=== PATIENT | female | born 1960 | race Caucasian/White ===

== ENCOUNTER 2017-12-06 11:51 | Emergency (ER) | payer SELFPAY ==
[~2017-12-06] VITALS: Ht 165.1 cm; Wt 74.0 kg
[2017-12-06 13:54] LABS: CLARITY URINE CLEAR (CLEAR); COLOR URINE YELLOW (YELLOW); KETONES URINE NEGATIVE (NEGATIVE); LEUKOCYTE ESTERASE URINE NEGATIVE (NEGATIVE); NITRITE URINE POSITIVE (NEGATIVE); OCCULT BLOOD URINE NEGATIVE (NEGATIVE); PROTEIN URINE NEGATIVE (NEGATIVE); SPECIFIC GRAVITY URINE 1.029 (1.005-1.030); UROBILINOGEN URINE 0.2 E.U./dL (0.2-1.0)
[2017-12-06] MEDS ORDERED: KETOROLAC 60MG/2ML VIAL IM ONE (14:00)
[2017-12-06] MEDS ORDERED: SODIUM CHLORIDE 0.9% 500 ML IV ONE (14:15)
[2017-12-06] MEDS ORDERED: CEFTRIAXONE 1 G PREMIX 50 ML IV ONE (14:15)
[2017-12-06 16:20] VITALS: BP 111/72
== END 2017-12-06 16:20 | disposition home or self-care (01) ==
LOC: ER 13:33
DX: M54.40 Lumbago with sciatica, unspecified side (principal); N39.0 Urinary tract infection, site not specified; E11.9 Type 2 diabetes mellitus without complications; Z98.890 Other specified postprocedural states
CPT/HCPCS: 81003; 87077; 87086; 87186; 96365; 96372; 99284; J0696; J1885; J7040; Z7610

== ENCOUNTER 2019-06-12 11:04 | Emergency (ER) | payer MEDICAID ==
[~2019-06-12] VITALS: Ht 165.1 cm; Wt 72.0 kg
[2019-06-12] MEDS ORDERED: INSU100V3 SUBCUT (11:49)
[2019-06-12] MEDS ORDERED: SODIUM CHLORIDE 0.9% 1,000 ML IV ONE (16:11)
[2019-06-12] MEDS ORDERED: KETOROLAC 30MG/ML VIAL IV STA (16:11)
[2019-06-12] MEDS ORDERED: ONDANSETRON HCL 4MG/2ML INJ IV STA (16:11)
[2019-06-12 16:25] LABS: CLARITY URINE CLEAR (CLEAR); COLOR URINE YELLOW (YELLOW); KETONES URINE TRACE (NEGATIVE); LEUKOCYTE ESTERASE URINE NEGATIVE (NEGATIVE); NITRITE URINE POSITIVE (NEGATIVE); OCCULT BLOOD URINE 1+ (NEGATIVE); PH URINE 5.5 (4.5-8.0); PROTEIN URINE 3+ (NEGATIVE); UROBILINOGEN URINE 0.2 E.U./dL (0.2-1.0)
[2019-06-12] MEDS ORDERED: CEFTRIAXONE 1 G PREMIX 50 ML IV ONE (17:15)
[2019-06-12 18:01] LABS: BASOPHILS % 0.6 % (0.0-2.0); CHLORIDE 104 mEq/L (98-107); EOSINOPHILS % 2.9 % (0.0-5.0); HEMATOCRIT. 34.3 % (36.0-48.0); HEMOGLOBIN. 11.9 g/dL (12.0-16.0); LYMPHOCYTES % 33.4 % (20.0-50.0); MEAN CORPUSCULAR HEMOGLOBIN 30.4 pg (28.0-32.0); MEAN CORPUSCULAR VOLUME 87.7 fL (81.0-99.0); MEAN PLATELET VOLUME 8.5 fl (7.4-10.4); MONOCYTES % 5.5 % (2.0-8.0); NEUTROPHILS % 57.6 % (40.0-76.0); PLATELET 323 x1000/uL (130-400); RED BLOOD CELL COUNT 3.92 mill/uL (4.2-5.4); RED CELL DISTRIBUTION WIDTH 12.5 % (11.6-14.6)
[2019-06-12 19:43] VITALS: BP 155/99
== END 2019-06-12 19:51 | disposition home or self-care (01) ==
LOC: ER 14:28
DX: N30.00 Acute cystitis without hematuria (principal); E11.9 Type 2 diabetes mellitus without complications; Z98.890 Other specified postprocedural states; Z79.4 Long term (current) use of insulin
CPT/HCPCS: 36415; 74176; 80053; 81003; 83690; 85025; 96361; 96365; 96375; 99284; J0696; J1885; J2405; J7030; Z7610

== ENCOUNTER 2019-11-27 17:08 | Emergency (ER) | payer MEDICAID ==
[~2019-11-27] VITALS: Ht 165.1 cm; Wt 77.0 kg
[~2019-11-27 17:08] MED LIST: INSU100V3 SUBCUT
[2019-11-27] MEDS ORDERED: IBUPROFEN 600MG TABLET PO STA (18:32)
[2019-11-27 18:40] LABS: CLARITY URINE CLEAR (CLEAR); COLOR URINE YELLOW (YELLOW); KETONES URINE NEGATIVE (NEGATIVE); LEUKOCYTE ESTERASE URINE NEGATIVE (NEGATIVE); NITRITE URINE NEGATIVE (NEGATIVE); OCCULT BLOOD URINE TRACE (NEGATIVE); PH URINE 6.5 (4.5-8.0); PROTEIN URINE 2+ (NEGATIVE); SPECIFIC GRAVITY URINE 1.012 (1.005-1.030); UROBILINOGEN URINE 0.2 E.U./dL (0.2-1.0)
[2019-11-27 19:41] LABS: BASOPHILS % 0.4 % (0.0-2.0); EOSINOPHILS % 2.1 % (0.0-5.0); HEMATOCRIT. 32.2 % (36.0-48.0); HEMOGLOBIN. 10.9 g/dL (12.0-16.0); MEAN CORPUSCULAR HEMOGLOBIN 30.3 pg (28.0-32.0); MEAN CORPUSCULAR VOLUME 89.3 fL (81.0-99.0); MEAN PLATELET VOLUME 8.1 fl (7.4-10.4); MONOCYTES % 7.1 % (2.0-8.0); NEUTROPHILS % 59.4 % (40.0-76.0); PLATELET 321 x1000/uL (130-400); RED BLOOD CELL COUNT 3.61 mill/uL (4.2-5.4); RED CELL DISTRIBUTION WIDTH 12.9 % (11.6-14.6)
[2019-11-27 19:48] LABS: CHLORIDE 105 mEq/L (98-107)
[2019-11-27] MEDS ORDERED: KETOROLAC 60MG/2ML VIAL IM ONE (20:45)
[2019-11-27 21:02] VITALS: BP 169/95
== END 2019-11-27 21:51 | disposition home or self-care (01) ==
LOC: ER 17:08
DX: R10.12 Left upper quadrant pain (principal); E11.9 Type 2 diabetes mellitus without complications; Z98.890 Other specified postprocedural states
CPT/HCPCS: 36415; 74176; 80053; 81003; 81025; 82962; 83690; 85025; 96372; 99284; J1885

== ENCOUNTER 2022-02-10 15:49 | Inpatient (IN) | payer MEDICAID, OTHER ==
[~2022-02-10] VITALS: Ht 160 cm; Wt 71.7 kg
[2022-02-10] MEDS ORDERED: MORPHINE SULFATE 4 MG/ML CPJ (NOT FOR IM USE) IV NR (17:35)
[2022-02-10 17:46] LABS: BASOPHILS % 0.6 % (0.0-2.0); EOSINOPHILS % 1.9 % (0.0-5.0); HEMATOCRIT. 25.4 % (36.0-48.0); HEMOGLOBIN. 8.3 g/dL (12.0-16.0); LYMPHOCYTES % 20.1 % (20.0-50.0); MEAN CORPUSCULAR VOLUME 91.6 fL (81.0-99.0); MEAN PLATELET VOLUME 7.1 fl (7.4-10.4); MONOCYTES % 10.7 % (2.0-8.0); NEUTROPHILS % 66.7 % (40.0-76.0); PLATELET 293 x1000/uL (130-400); RED BLOOD CELL COUNT 2.78 mill/uL (4.2-5.4); RED CELL DISTRIBUTION WIDTH 16.1 % (11.6-14.6)
[2022-02-10 17:53] LABS: CHLORIDE 102 mEq/L (98-107)
[2022-02-11] VITALS: BP 140/73
[2022-02-11] MEDS ORDERED: HYDROCODONE/ACETAMINOPHEN 10/325MG TABLET PO PRN (00:45)
[2022-02-11] MEDS ORDERED: DEXTROSE 50% WATER 50ML SYRINGE IV PRN (00:45)
[2022-02-11] MEDS ORDERED: ATOR40TA70 PO (01:14)
[2022-02-11] MEDS ORDERED: SITA50TA3 PO (01:15)
[2022-02-11] MEDS ORDERED: ONDA4TAB5 PO (01:16)
[2022-02-11] MEDS ORDERED: AMLO10TA80 PO (01:16)
[2022-02-11 04:00] VITALS: BP 133/64
[2022-02-11] MEDS: BLOOD SUGAR DIAGNOSTIC STRIP TEST SCH ×3 (06:38→17:20)
[2022-02-11 06:58] LABS: BASOPHILS % 0.6 % (0.0-2.0); HEMATOCRIT. 24.1 % (36.0-48.0); HEMOGLOBIN. 7.9 g/dL (12.0-16.0); LYMPHOCYTES % 17.2 % (20.0-50.0); MEAN CORPUSCULAR HEMOGLOBIN 30.1 pg (28.0-32.0); MEAN CORPUSCULAR VOLUME 91.7 fL (81.0-99.0); MEAN PLATELET VOLUME 7.6 fl (7.4-10.4); MONOCYTES % 12.4 % (2.0-8.0); NEUTROPHILS % 66.8 % (40.0-76.0); PLATELET 281 x1000/uL (130-400); RED BLOOD CELL COUNT 2.63 mill/uL (4.2-5.4); RED CELL DISTRIBUTION WIDTH 16.4 % (11.6-14.6)
[2022-02-11] MEDS: INSULIN LISPRO 100 UNITS/ML SUBCUT SCH ×3 (07:50→17:50)
[2022-02-11 08:00] VITALS: BP 141/75
[2022-02-11] MEDS: ATORVASTATIN CALCIUM 40MG TABLET PO SCH (08:42)
[2022-02-11] MEDS: FOLIC ACID/VITAMIN B COMP W-C TABLET PO SCH (08:42)
[2022-02-11] MEDS: SEVELAMER CARBONATE 800 MG TABLET PO SCH (08:42)
[2022-02-11] MEDS: AMLODIPINE 10MG TABLET PO SCH (08:42)
[2022-02-11] MEDS: ASPIRIN 81MG TABLET PO SCH (08:43)
[2022-02-11] MEDS ORDERED: LEVO75TA7 PO (11:45)
[2022-02-11] MEDS ORDERED: POLY17PO3 MT (11:45)
[2022-02-11 12:00] VITALS: BP 129/70
[2022-02-11 16:00] VITALS: BP 142/75
[2022-02-11 20:30] VITALS: BP 139/73
[2022-02-12] VITALS (7 sets, daily range): BP systolic 140–157; BP diastolic 69–76
[2022-02-12 05:40] LABS: BASOPHILS % 0.6 % (0.0-2.0); EOSINOPHILS % 2.7 % (0.0-5.0); HEMATOCRIT. 23.9 % (36.0-48.0); HEMOGLOBIN. 7.9 g/dL (12.0-16.0); LYMPHOCYTES % 14.3 % (20.0-50.0); MEAN CORPUSCULAR HEMOGLOBIN 30.2 pg (28.0-32.0); MEAN CORPUSCULAR VOLUME 91.1 fL (81.0-99.0); MEAN PLATELET VOLUME 7.8 fl (7.4-10.4); MONOCYTES % 8.9 % (2.0-8.0); NEUTROPHILS % 73.5 % (40.0-76.0); PLATELET 261 x1000/uL (130-400); RED BLOOD CELL COUNT 2.62 mill/uL (4.2-5.4)
[2022-02-12] MEDS: AMLODIPINE 10MG TABLET PO SCH (09:00)
[2022-02-12] MEDS: ASPIRIN 81MG TABLET PO SCH (09:29)
[2022-02-12] MEDS: FOLIC ACID/VITAMIN B COMP W-C TABLET PO SCH (09:30)
[2022-02-12] MEDS: ATORVASTATIN CALCIUM 40MG TABLET PO SCH (09:30)
[2022-02-12] MEDS: SEVELAMER CARBONATE 800 MG TABLET PO SCH (09:30)
[2022-02-12] MEDS: METOPROLOL TARTRATE 25MG TABLET PO SCH ×2 (12:00→20:38)
[2022-02-12 16:21] LABS: T4 FREE 1.38 ng/dL (0.76-1.46)
[2022-02-12 19:25] LABS: HEPATITIS B SURFACE ANTIGEN NEGATIVE
[2022-02-12] MEDS ORDERED: EPOETIN ALFA 4000UNITS/ML VIAL SUBCUT SCH (21:00)
[2022-02-13] VITALS: BP 142/70
[2022-02-13 04:00] VITALS: BP 138/73
[2022-02-13 07:48] LABS: INR 1.1; PARTIAL THROMBOPLASTIN TIME 22.3 sec (23.4-31.0); PROTHROMBIN TIME 11.3 sec (9.6-11.0)
[2022-02-13 07:52] VITALS: BP 143/74
[2022-02-13 07:55] LABS: BASOPHILS % 0.9 % (0.0-2.0); HEMATOCRIT. 23.1 % (36.0-48.0); HEMOGLOBIN. 7.6 g/dL (12.0-16.0); LYMPHOCYTES % 16.4 % (20.0-50.0); MEAN CORPUSCULAR HEMOGLOBIN 29.9 pg (28.0-32.0); MEAN CORPUSCULAR VOLUME 90.8 fL (81.0-99.0); MEAN PLATELET VOLUME 8.5 fl (7.4-10.4); MONOCYTES % 9.5 % (2.0-8.0); NEUTROPHILS % 70.2 % (40.0-76.0); PLATELET 56 x1000/uL (130-400); RED BLOOD CELL COUNT 2.55 mill/uL (4.2-5.4); RED CELL DISTRIBUTION WIDTH 16.2 % (11.6-14.6)
[2022-02-13] MEDS: FOLIC ACID/VITAMIN B COMP W-C TABLET PO SCH (08:37)
[2022-02-13] MEDS: METOPROLOL TARTRATE 25MG TABLET PO SCH ×2 (08:37→20:33)
[2022-02-13] MEDS: SEVELAMER CARBONATE 800 MG TABLET PO SCH (08:37)
[2022-02-13] MEDS: ATORVASTATIN CALCIUM 40MG TABLET PO SCH (08:37)
[2022-02-13 12:00] VITALS: BP 143/74
[2022-02-13 16:00] VITALS: BP 141/76
[2022-02-13 20:00] VITALS: BP 160/82
[2022-02-14] VITALS: BP 150/75
[2022-02-14 04:00] VITALS: BP 148/78
[2022-02-14 08:00] VITALS: BP 166/92
[2022-02-14] MEDS: METOPROLOL TARTRATE 25MG TABLET PO SCH ×2 (11:10→20:42)
[2022-02-14] MEDS: ATORVASTATIN CALCIUM 40MG TABLET PO SCH (11:10)
[2022-02-14] MEDS: FOLIC ACID/VITAMIN B COMP W-C TABLET PO SCH (11:10)
[2022-02-14] MEDS: SEVELAMER CARBONATE 800 MG TABLET PO SCH (11:10)
[2022-02-14 12:00] VITALS: BP 154/77
[2022-02-14] MEDS ORDERED: SODIUM BICARBONATE 4% (2.4MEQ) 5ML VIAL IV ONE (14:01)
[2022-02-14 16:00] VITALS: BP 155/78
[2022-02-14 16:15] LABS: BASOPHILS % 0.6 % (0.0-2.0); EOSINOPHILS % 2.7 % (0.0-5.0); HEMATOCRIT. 28.1 % (36.0-48.0); HEMOGLOBIN. 9.3 g/dL (12.0-16.0); LYMPHOCYTES % 14.7 % (20.0-50.0); MEAN CORPUSCULAR HEMOGLOBIN 29.6 pg (28.0-32.0); MEAN CORPUSCULAR VOLUME 89.7 fL (81.0-99.0); MEAN PLATELET VOLUME 7.2 fl (7.4-10.4); MONOCYTES % 7.2 % (2.0-8.0); NEUTROPHILS % 74.8 % (40.0-76.0); PLATELET 283 x1000/uL (130-400); RED BLOOD CELL COUNT 3.13 mill/uL (4.2-5.4); RED CELL DISTRIBUTION WIDTH 15.7 % (11.6-14.6)
[2022-02-14 16:28] LABS: PHOSPHORUS 3.7 mg/dL (2.5-4.9)
[2022-02-14 20:00] VITALS: BP 160/77
[2022-02-15] VITALS: BP 148/67
[2022-02-15 04:00] VITALS: BP 135/68
[2022-02-15 08:00] VITALS: BP 153/72
[2022-02-15] MEDS: FOLIC ACID/VITAMIN B COMP W-C TABLET PO SCH (10:01)
[2022-02-15] MEDS: ATORVASTATIN CALCIUM 40MG TABLET PO SCH (10:01)
[2022-02-15] MEDS: SEVELAMER CARBONATE 800 MG TABLET PO SCH (10:01)
[2022-02-15] MEDS: METOPROLOL TARTRATE 25MG TABLET PO SCH ×2 (10:02→21:27)
[2022-02-15 12:00] VITALS: BP 146/79
[2022-02-15] MEDS ORDERED: SODIUM BICARBONATE 4% (2.4MEQ) 5ML VIAL IV ONE (13:17)
[2022-02-15 16:00] VITALS: BP 142/74
[2022-02-15] MEDS ORDERED: IPRATROPIUM/ALBUTEROL 0.5-3(2.5)MG/3ML NEB HHN PRN (17:00)
[2022-02-15 20:00] VITALS: BP 157/70
[2022-02-16] VITALS: BP 142/70
[2022-02-16 04:00] VITALS: BP 146/66
[2022-02-16 06:44] LABS: BASOPHILS % 0.6 % (0.0-2.0); HEMATOCRIT. 25.4 % (36.0-48.0); HEMOGLOBIN. 8.5 g/dL (12.0-16.0); LYMPHOCYTES % 20.3 % (20.0-50.0); MEAN CORPUSCULAR VOLUME 89.7 fL (81.0-99.0); MEAN PLATELET VOLUME 7.5 fl (7.4-10.4); MONOCYTES % 8.4 % (2.0-8.0); NEUTROPHILS % 67.7 % (40.0-76.0); PLATELET 254 x1000/uL (130-400); RED BLOOD CELL COUNT 2.83 mill/uL (4.2-5.4); RED CELL DISTRIBUTION WIDTH 15.6 % (11.6-14.6)
[2022-02-16 08:24] VITALS: BP 179/89
[2022-02-16] MEDS: SEVELAMER CARBONATE 800 MG TABLET PO SCH (10:10)
[2022-02-16] MEDS: METOPROLOL TARTRATE 25MG TABLET PO SCH ×2 (10:10→20:14)
[2022-02-16] MEDS: ATORVASTATIN CALCIUM 40MG TABLET PO SCH (10:10)
[2022-02-16] MEDS: FOLIC ACID/VITAMIN B COMP W-C TABLET PO SCH (10:11)
[2022-02-16 11:52] LABS: BG BASE EXCESS 1.2 mmol/L (-2.0-2.0); BG CARBOXYHEMOGLOBIN 0.1 % (0.5-1.5); BG DEOXYHEMOGLOBIN 13.4 % (0.0-5.0); BG FRACTION INSPIRED OXYGEN 21; BG HCO3 ACT 26.3 mmol/L (22.0-26.0); BG METHEMOGLOBIN 0.3 % (0.0-1.5); BG OXYGEN SATURATION 86.5 % (92.0-98.5); BG OXYHEMOGLOBIN 86.2 % (94.0-97.0); BG PCO2 43.6 mmHg (35.0-45.0); BG PH 7.398 (7.350-7.450); BG SAMPLE SITE RH; BG TOTAL HEMOGLOBIN 9.7 g/dL (12.0-18.0); BG VENT MODE ROOM AIR
[2022-02-16 12:00] VITALS: BP 162/74
[2022-02-16 16:30] VITALS: BP 156/62
[2022-02-16 20:00] VITALS: BP 150/74
[2022-02-17] VITALS: BP 163/82
[2022-02-17 06:09] LABS: BASOPHILS % 0.6 % (0.0-2.0); EOSINOPHILS % 3.5 % (0.0-5.0); HEMATOCRIT. 25.1 % (36.0-48.0); HEMOGLOBIN. 8.4 g/dL (12.0-16.0); LYMPHOCYTES % 20.8 % (20.0-50.0); MEAN CORPUSCULAR HEMOGLOBIN 29.6 pg (28.0-32.0); MEAN CORPUSCULAR VOLUME 88.5 fL (81.0-99.0); MEAN PLATELET VOLUME 7.4 fl (7.4-10.4); MONOCYTES % 8.4 % (2.0-8.0); NEUTROPHILS % 66.7 % (40.0-76.0); PLATELET 256 x1000/uL (130-400); RED BLOOD CELL COUNT 2.84 mill/uL (4.2-5.4); RED CELL DISTRIBUTION WIDTH 15.5 % (11.6-14.6)
[2022-02-17 07:08] VITALS: BP 149/74
[2022-02-17 08:00] VITALS: BP 145/70
[2022-02-17] MEDS: FOLIC ACID/VITAMIN B COMP W-C TABLET PO SCH (08:50)
[2022-02-17] MEDS: METOPROLOL TARTRATE 25MG TABLET PO SCH ×2 (08:51→21:35)
[2022-02-17] MEDS: SEVELAMER CARBONATE 800 MG TABLET PO SCH (08:51)
[2022-02-17] MEDS: ATORVASTATIN CALCIUM 40MG TABLET PO SCH (08:51)
[2022-02-17] MEDS: AMLODIPINE 2.5MG TABLET PO SCH ×2 (08:54→21:34)
[2022-02-17] MEDS: ASPIRIN 81MG TABLET PO SCH (10:18)
[2022-02-17 12:00] VITALS: BP 155/74
[2022-02-17] MEDS ORDERED: FUROSEMIDE 100MG/10ML VIAL IVP NR (13:45)
[2022-02-17] MEDS ORDERED: LACTULOSE 20G/30ML UDC PO NR (13:45)
[2022-02-17] MEDS: DOCUSATE SODIUM 250MG CAPSULE PO SCH (14:53)
[2022-02-17] MEDS: ONDANSETRON HCL 4MG/2ML INJ IV PRN (15:11)
[2022-02-17 16:00] VITALS: BP 152/76
[2022-02-17 20:00] VITALS: BP 191/87
[2022-02-17] MEDS: ACETAMINOPHEN 325MG TABLET PO PRN (21:36)
[2022-02-18] VITALS (7 sets, daily range): BP systolic 138–172; BP diastolic 64–89
[2022-02-18 05:51] LABS: BASOPHILS % 0.7 % (0.0-2.0); EOSINOPHILS % 3.4 % (0.0-5.0); HEMOGLOBIN. 8.5 g/dL (12.0-16.0); LYMPHOCYTES % 19.5 % (20.0-50.0); MEAN CORPUSCULAR HEMOGLOBIN 29.7 pg (28.0-32.0); MEAN CORPUSCULAR VOLUME 87.7 fL (81.0-99.0); MEAN PLATELET VOLUME 7.4 fl (7.4-10.4); MONOCYTES % 8.7 % (2.0-8.0); NEUTROPHILS % 67.7 % (40.0-76.0); PLATELET 254 x1000/uL (130-400); RED BLOOD CELL COUNT 2.85 mill/uL (4.2-5.4); RED CELL DISTRIBUTION WIDTH 15.3 % (11.6-14.6)
[2022-02-18] MEDS: AMLODIPINE 5MG TABLET PO SCH ×3 (09:00→21:28)
[2022-02-18] MEDS: NITROGLYCERIN OINT 1GM/INCH UDPKT TD SCH ×3 (09:00→21:27)
[2022-02-18] MEDS: METOPROLOL TARTRATE 25MG TABLET PO SCH ×3 (09:00→21:28)
[2022-02-18] MEDS: ATORVASTATIN CALCIUM 40MG TABLET PO SCH (09:11)
[2022-02-18] MEDS: ASPIRIN 81MG TABLET PO SCH (09:12)
[2022-02-18] MEDS: DOCUSATE SODIUM 250MG CAPSULE PO SCH (09:12)
[2022-02-18] MEDS: FOLIC ACID/VITAMIN B COMP W-C TABLET PO SCH (09:12)
[2022-02-18] MEDS: SEVELAMER CARBONATE 800 MG TABLET PO SCH (09:12)
[2022-02-18] MEDS: ONDANSETRON HCL 4MG/2ML INJ IV PRN (14:42)
[2022-02-19] VITALS: BP 130/70
[2022-02-19 04:00] VITALS: BP 144/72
[2022-02-19] MEDS: NITROGLYCERIN OINT 1GM/INCH UDPKT TD SCH ×3 (05:17→22:52)
[2022-02-19 06:14] LABS: BASOPHILS % 0.5 % (0.0-2.0); EOSINOPHILS % 2.5 % (0.0-5.0); HEMOGLOBIN. 8.4 g/dL (12.0-16.0); LYMPHOCYTES % 21.2 % (20.0-50.0); MEAN CORPUSCULAR HEMOGLOBIN 29.7 pg (28.0-32.0); MEAN CORPUSCULAR VOLUME 88.4 fL (81.0-99.0); MEAN PLATELET VOLUME 7.5 fl (7.4-10.4); MONOCYTES % 9.4 % (2.0-8.0); NEUTROPHILS % 66.4 % (40.0-76.0); PLATELET 251 x1000/uL (130-400); RED BLOOD CELL COUNT 2.83 mill/uL (4.2-5.4); RED CELL DISTRIBUTION WIDTH 15.6 % (11.6-14.6)
[2022-02-19 08:00] VITALS: BP 148/76
[2022-02-19] MEDS: DOCUSATE SODIUM 250MG CAPSULE PO SCH ×2 (08:41→21:45)
[2022-02-19] MEDS: ASPIRIN 81MG TABLET PO SCH (08:41)
[2022-02-19] MEDS: ATORVASTATIN CALCIUM 40MG TABLET PO SCH (08:41)
[2022-02-19] MEDS: SEVELAMER CARBONATE 800 MG TABLET PO SCH (08:41)
[2022-02-19] MEDS: FOLIC ACID/VITAMIN B COMP W-C TABLET PO SCH (08:41)
[2022-02-19] MEDS: METOPROLOL TARTRATE 25MG TABLET PO SCH ×3 (08:43→21:36)
[2022-02-19] MEDS: AMLODIPINE 5MG TABLET PO SCH ×3 (09:00→21:36)
[2022-02-19 12:00] VITALS: BP 157/77
[2022-02-19 16:00] VITALS: BP 159/90
[2022-02-19 20:00] VITALS: BP 149/75
[2022-02-19] MEDS: ACETAMINOPHEN 325MG TABLET PO PRN (21:35)
[2022-02-20] VITALS: BP 138/63
[2022-02-20 03:48] VITALS: BP 152/83
[2022-02-20] MEDS: NITROGLYCERIN OINT 1GM/INCH UDPKT TD SCH ×3 (05:22→21:15)
[2022-02-20 07:58] VITALS: BP 134/64
[2022-02-20] MEDS: SEVELAMER CARBONATE 800 MG TABLET PO SCH (10:00)
[2022-02-20] MEDS: FOLIC ACID/VITAMIN B COMP W-C TABLET PO SCH (10:00)
[2022-02-20] MEDS: ASPIRIN 81MG TABLET PO SCH (10:00)
[2022-02-20] MEDS: ATORVASTATIN CALCIUM 40MG TABLET PO SCH (10:01)
[2022-02-20] MEDS: AMLODIPINE 5MG TABLET PO SCH ×2 (10:01→20:24)
[2022-02-20] MEDS: METOPROLOL TARTRATE 25MG TABLET PO SCH ×2 (10:01→20:24)
[2022-02-20 12:15] VITALS: BP 145/76
[2022-02-20 16:00] VITALS: BP 149/71
[2022-02-20 20:00] VITALS: BP 125/71
[2022-02-21] VITALS: BP 143/69
[2022-02-21 04:00] VITALS: BP 130/65
[2022-02-21] MEDS: NITROGLYCERIN OINT 1GM/INCH UDPKT TD SCH ×2 (05:39→14:07)
[2022-02-21 06:39] LABS: BASOPHILS % 0.6 % (0.0-2.0); EOSINOPHILS % 3.1 % (0.0-5.0); HEMATOCRIT. 25.3 % (36.0-48.0); HEMOGLOBIN. 8.5 g/dL (12.0-16.0); LYMPHOCYTES % 22.4 % (20.0-50.0); MEAN CORPUSCULAR HEMOGLOBIN 29.9 pg (28.0-32.0); MEAN CORPUSCULAR VOLUME 88.6 fL (81.0-99.0); MEAN PLATELET VOLUME 7.4 fl (7.4-10.4); MONOCYTES % 7.8 % (2.0-8.0); NEUTROPHILS % 66.1 % (40.0-76.0); PLATELET 266 x1000/uL (130-400); RED BLOOD CELL COUNT 2.85 mill/uL (4.2-5.4); RED CELL DISTRIBUTION WIDTH 15.2 % (11.6-14.6)
[2022-02-21 08:00] VITALS: BP 128/74
[2022-02-21] MEDS: DOCUSATE SODIUM 250MG CAPSULE PO SCH (09:17)
[2022-02-21] MEDS: ATORVASTATIN CALCIUM 40MG TABLET PO SCH (09:17)
[2022-02-21] MEDS: SEVELAMER CARBONATE 800 MG TABLET PO SCH (09:17)
[2022-02-21] MEDS: FOLIC ACID/VITAMIN B COMP W-C TABLET PO SCH (09:17)
[2022-02-21 11:44] VITALS: BP 163/89
[2022-02-21] MEDS: METOPROLOL TARTRATE 25MG TABLET PO SCH (12:49)
[2022-02-21] MEDS: ASPIRIN 81MG TABLET PO SCH (12:49)
[2022-02-21] MEDS: AMLODIPINE 5MG TABLET PO SCH (12:49)
[2022-02-21] MEDS ORDERED: NEPVIT PO (13:01)
[2022-02-21] MEDS ORDERED: METO25TA6 PO (13:01)
[2022-02-21] MEDS ORDERED: DOCU250C14 PO (13:01)
[2022-02-21] MEDS ORDERED: NITR1OIN TD (13:01)
[2022-02-21] MEDS ORDERED: SEVE800T8 PO (13:01)
[2022-02-21] MEDS ORDERED: ASPI-1406 MT (13:01)
[2022-02-21 14:18] VITALS: BP 154/78
== END 2022-02-21 16:28 | disposition home health service (06) | DRG 133 ==
LOC: ER 15:49 → 6WST 21:27 → ENRESERV 21:47 → EDBEDREQ 21:52 → EDBEDREQTM 21:52
PROVIDERS: ADMIT Internal Medicine; ATTEND Internal Medicine
PROC: 5A1D70Z Performance of Urinary Filtration, Intermittent, Less than 6 Hours Per Day (ICD-10-PCS; 2022-02-12)
PROC: 0W993ZZ Drainage of Right Pleural Cavity, Percutaneous Approach (ICD-10-PCS; principal; 2022-02-14)
PROC: 5A1D70Z Performance of Urinary Filtration, Intermittent, Less than 6 Hours Per Day (ICD-10-PCS; 2022-02-14)
PROC: 0W9B3ZZ Drainage of Left Pleural Cavity, Percutaneous Approach (ICD-10-PCS; 2022-02-15)
PROC: 5A1D70Z Performance of Urinary Filtration, Intermittent, Less than 6 Hours Per Day (ICD-10-PCS; 2022-02-16)
PROC: 5A1D70Z Performance of Urinary Filtration, Intermittent, Less than 6 Hours Per Day (ICD-10-PCS; 2022-02-18)
PROC: 5A1D70Z Performance of Urinary Filtration, Intermittent, Less than 6 Hours Per Day (ICD-10-PCS; 2022-02-19)
PROC: 5A1D70Z Performance of Urinary Filtration, Intermittent, Less than 6 Hours Per Day (ICD-10-PCS; 2022-02-21)
DX: J96.01 Acute respiratory failure with hypoxia (principal); I50.33 Acute on chronic diastolic (congestive) heart failure; D69.6 Thrombocytopenia, unspecified; N18.6 End stage renal disease; J91.8 Pleural effusion in other conditions classified elsewhere; E11.22 Type 2 diabetes mellitus with diabetic chronic kidney disease; D63.1 Anemia in chronic kidney disease; I13.2 Hypertensive heart and chronic kidney disease with heart failure and with stage 5 chronic kidney disease, or end stage renal disease; E78.00 Pure hypercholesterolemia, unspecified; J45.909 Unspecified asthma, uncomplicated; E05.90 Thyrotoxicosis, unspecified without thyrotoxic crisis or storm; Z20.822 Contact with and (suspected) exposure to COVID-19; E03.9 Hypothyroidism, unspecified; E78.5 Hyperlipidemia, unspecified; F41.9 Anxiety disorder, unspecified; K59.00 Constipation, unspecified; Z79.4 Long term (current) use of insulin; Z91.19 Patient's noncompliance with other medical treatment and regimen; Z99.2 Dependence on renal dialysis; Z79.84 Long term (current) use of oral hypoglycemic drugs; Z79.899 Other long term (current) drug therapy
CPT/HCPCS: 32555; 36415; 36600; 71045; 76604; 80048; 80053; 80061; 82040; 82375; 82805; 82962; 83036; 83735; 83880; 84100; 84145; 84439; 84443; 84484; 85025; 85044; 86705; 86709; 86803; 87340; 87426; 88305; 88312; 93005; 93306; 97161; 99285; J0885; J1940; J2270; J2405; J3490